=== PATIENT | female | born 1955 | race Caucasian/White ===

== ENCOUNTER 2020-11-17 14:28 | Inpatient (IN) ==
[2020-11-17 15:09] LABS: ABS Lymphocytes 0.9 10^3/ul (1.0-4.8); ABS Monocytes 0.5 10^3/ul (0-0.8); ABS Neutrophils 8.2 10^3/ul (1.5-7.7); Eosinophil % 0.2 %; Hematocrit 37 % (35-47); Hemoglobin 13.1 g/dL (12.0-16.0); Lymphocyte % 9.4 %; Mean Corpuscular HGB Conc 35 g/dL (31-36); Mean Corpuscular Hemoglobin 32 pg (27-31); Mean Corpuscular Volume 90 fL (80-97); Mean Platelet Volume 8.7 fL (7.4-10.4); Platelet Count 202 10^3/uL (150-450); Red Blood Count 4.15 10^6 /uL (3.70-4.87); Red Cell Distribution Width 13 % (10-15); White Blood Count 9.7 10^3/uL (3.5-10.8)
[2020-11-17 15:33] LABS: Troponin I 0.13 ng/mL (<0.03)
[2020-11-17 15:43] LABS: ALT 11 U/L (7-52); AST 15 U/L (13-39); Albumin/Globulin Ratio 1.6 (1-3); Alkaline Phosphatase 55 U/L (35-149); Anion Gap 7 mmol/L (2-11); Blood Urea Nitrogen 15 mg/dL (6-24); CO2 Carbon Dioxide 26 mmol/L (22-32); Calcium 9.3 mg/dL (8.6-10.3); Chloride 105 mmol/L (101-111); EGFR Non-African American 78.5 (>60); Globulin 2.5 g/dL (2-4); Glucose 101 mg/dL (70-100); Potassium 3.8 mmol/L (3.5-5.0); Sodium 138 mmol/L (135-145); Total Protein 6.5 g/dL (6.4-8.9)
[2020-11-17] MEDS ORDERED: Heparin DRIP 25,000 UNITS BAG 25,000 UNITS/500 ML BAG IV SCH (15:45)
[2020-11-17] MEDS: Heparin 5000 UNITS/ML 1 mL VIAL IV SCH (16:04)
[2020-11-17 16:07] LABS: Activated Partial Thrombo Time 26.4 seconds (26.0-38.0)
[2020-11-17 18:47] LABS: Cholesterol 158 mg/dL; HDL Cholesterol 46.4 mg/dL; LDL Cholesterol 92 mg/dL; Magnesium 1.6 mg/dL (1.9-2.7); Triglycerides 98 mg/dL
[2020-11-17 18:59] LABS: Troponin I 0.31 ng/mL (<0.03)
[2020-11-17] MEDS ORDERED: Magnesium Sulfate 2 gm BAG 2 GM/50 ML BAG IVPB ONE (19:00)
[2020-11-17] MEDS ORDERED: Iohexol 350 (CONTRAST) 500 ML MDV IV ONE (19:15)
[2020-11-18 03:19] LABS: Troponin I 0.58 ng/mL (<0.03)
[2020-11-18 04:24] LABS: ABS Eosinophils 0.1 10^3/ul (0-0.6); ABS Lymphocytes 1.9 10^3/ul (1.0-4.8); ABS Monocytes 0.6 10^3/ul (0-0.8); ABS Neutrophils 4.7 10^3/ul (1.5-7.7); Eosinophil % 1.1 %; Hematocrit 38 % (35-47); Hemoglobin 13.2 g/dL (12.0-16.0); Lymphocyte % 25.4 %; Mean Corpuscular HGB Conc 35 g/dL (31-36); Mean Corpuscular Hemoglobin 31 pg (27-31); Mean Corpuscular Volume 90 fL (80-97); Mean Platelet Volume 8.9 fL (7.4-10.4); Nucleated Red Blood Cells % 0.1; Platelet Count 227 10^3/uL (150-450); Red Blood Count 4.22 10^6 /uL (3.70-4.87); Red Cell Distribution Width 13 % (10-15); White Blood Count 7.4 10^3/uL (3.5-10.8)
[2020-11-18 04:44] LABS: Albumin 3.9 g/dL (3.2-5.2); Albumin/Globulin Ratio 1.6 (1-3); EGFR African American 88.1 (>60); EGFR Non-African American 72.8 (>60); Globulin 2.5 g/dL (2-4); Potassium 3.5 mmol/L (3.5-5.0); Total Bilirubin 0.3 mg/dL (0.2-1.0); Total Protein 6.4 g/dL (6.4-8.9)
[2020-11-18 08:35] LABS: Magnesium 2.3 mg/dL (1.9-2.7)
[2020-11-18 08:37] LABS: Creatine Kinase 51 U/L (10-223)
[2020-11-18 08:40] LABS: Creatine Kinase 66 U/L (10-223)
[2020-11-18 08:41] LABS: CKMB ng/mL 2.2 ng/mL (0.6-6.3)
[2020-11-18 08:42] LABS: Creatine Kinase 70 U/L (10-223)
[2020-11-18 08:46] LABS: CKMB ng/mL 3.5 ng/mL (0.6-6.3)
[2020-11-18 08:52] LABS: Creatine Kinase 80 U/L (10-223)
[2020-11-18 08:52] LABS: Creatine Kinase 81 U/L (10-223)
[2020-11-18 08:54] LABS: CKMB ng/mL 4.4 ng/mL (0.6-6.3)
[2020-11-18 08:54] LABS: CKMB ng/mL 4.4 ng/mL (0.6-6.3)
[2020-11-18] MEDS ORDERED: diPHENhydraMINE IV 50 MG/ML 1 ml VIAL (BENADRYL) SLOW PUSH PRN (09:03)
[2020-11-18] MEDS ORDERED: Perflutren Lipid Microsphere 3 ML VIAL ONE (09:13)
[2020-11-18] MEDS ORDERED: NS 0.9% 1000 ml BAG 1,000 ML IV SCH ×2 (09:15→15:45)
[2020-11-18 09:26] LABS: Creatine Kinase 78 U/L (10-223)
[2020-11-18 09:28] LABS: CKMB ng/mL 4.3 ng/mL (0.6-6.3)
[2020-11-18] MEDS ORDERED: Midazolam 5 mg/5 ml VIAL 1 mg/ml 5 ml VIAL (5 mg) ONE (09:34)
[2020-11-18] MEDS ORDERED: VERAPAMIL 2.5 MG/ML 2 ML VIAL ** 5 mg/2 ml ONE (09:35)
[2020-11-18] MEDS ORDERED: Heparin 1,000 UNIT/ML 10 ml (10,000 UNITS) CATHLAB/DIALYSIS ONE ×2 (09:35→09:36)
[2020-11-18] MEDS ORDERED: Heparin 2 UNITS/ML 1000 mls 2,000 ML IV ONE (09:36)
[2020-11-18] MEDS ORDERED: Lidocaine 1% VIAL 10 MG/ML VIAL ONE (09:36)
[2020-11-18] MEDS ORDERED: Iohexol 350 (CONTRAST) 200 ML MDV IV ONE (09:36)
[2020-11-18] MEDS ORDERED: nitroGLYCERIN DRIP 0 MCG/0 ML BTL ONE (09:36)
[2020-11-18] MEDS ORDERED: diPHENhydraMINE IV 50 MG/ML 1 ml VIAL (BENADRYL) ONE (09:37)
[2020-11-18 09:49] LABS: Troponin I 0.42 ng/mL (<0.03)
[2020-11-18] MEDS: Heparin 5000 UNITS/ML 1 mL VIAL IV SCH (12:09)
[2020-11-19 11:05] VITALS: BP 114/63
== END 2020-11-19 12:00 | disposition home or self-care (01) | DRG 190 ==
LOC: ED 14:28 → MEDTELE 17:53
PROVIDERS: ADMIT Hospitalist; ATTEND Internal Medicine